=== PATIENT | male | born 1955 | race Caucasian/White ===

== ENCOUNTER → 2023-03-16 | Outpatient (CLI) | payer OTHER, SELFPAY ==
--- NOTE | 2023-03-16 14:52 | VDLE_ITS ---
Reason For Study: Right Knee Pain RIGHT LEFT GSV is normal. CFV is compressible, spontaneous, phasic, CFV is compressible, spontaneous, phasic, competent, and demonstrates normal competent and demonstrates normal augmentation. augmentation. FV is compressible, spontaneous, phasic, competent and demonstrates normal augmentation. POP V is compressible, spontaneous, phasic, competent and demonstrates normal augmentation. T/P Trunk is compressible. PTV is compressible. RT PerV is compressible. A hypoechoic non vascularized area measuring approximately 6.78cm x 1.63cm is noted within the Rt gastrocnemius muscle. Procedure This is a venous duplex using B-mode, color flow and spectral Doppler. Exam performed in department. The exam was diagnostic. A preliminary report was called and/or faxed to [facility]. VL/Venous Duplex US, Unilateral Interpretation Summary There is no evidence of right lower extremity deep vein thrombosis. Right great saphenous vein appears patent and compressible segmentally. Right medial gastrocnemius muscle 6.78 x 1.63 cm oblong nonvascular likely cystic structure of undetermined etiology. Clinical correlat ion would be appropriate. Normal flow patterns left common femoral vein Ordering Physician: Gamaliel Gonzalez Referring Physician: Jorge Galvan Performed By: Didier Fischer RVT
== END | disposition home or self-care (01) ==
LOC: CVS 14:50
PROVIDERS: PCP Family Medicine; Referring Provider Physician Assistant; Visit Provider Physician Assistant
DX: M17.11 Unilateral primary osteoarthritis, right knee (principal)
CPT/HCPCS: 93971